=== PATIENT | female | born 1995 | race Caucasian/White ===

== ENCOUNTER 2021-05-18 11:00 | Emergency (ER) | payer SELFPAY ==
[2021-05-18 11:14] VITALS: BP 107/62; PULSE 103; RESP 18; TEMP 37.8; O2SAT 100
--- NOTE | 2021-05-18 11:16 | ED.URI ---
HPI - URI/Sore Throat General Chief Complaint: Upper Respiratory Infection Stated Complaint: Sore Throat,Rash Time Seen by Provider: 05/18/21 11:16 Source: patient and RN notes reviewed Mode of arrival: ambulatory Limitations: no limitations History of Present Illness HPI Narrative: 25-year-old female presents with concern for sore throat, rhinorrhea, nasal congestion, cough, intermittent fever, rash. Reports she has been taking Advil. She denies shortness of breath, body aches, chills. Denies known sick contacts. MD elicited complaint: sore throat Related Data Allergies Allergy/AdvReac Type Severity Reaction Status Date / Time No Known Allergies Allergy Verified 05/18/21 11:22 Review of Systems Review of Systems: Narrative: CONSTITUTIONAL: Denies malaise, chills, sweats. Reports fever. EYES: Denies visual changes, redness, or discharge. ENT: Reports rhinorrhea, congestion, sore throat. Denies sinus pain, otalgia CARDIOVASCULAR: Denies chest pain, palpitations, or edema. RESPIRATORY: Reports cough. Denies dyspnea. GASTROINTESTINAL: Denies abdominal pain, nausea, vomiting, diarrhea SKIN: Denies rash or itching. MUSCULOSKELETAL: Denies myalgia. NEUROLOGIC: Denies headache. All systems reviewed & are unremarkable except as noted in HPI and below PMFSH Comments At time of signature, agree with nursing past medical, surgical, social and family history. There is no relevant family history pertinent to the presenting complaint Exam Narrative: Exam Narrative: GENERAL: Well-appearing, well-nourished, and in no acute distress. HEAD: Normocephalic EYES: PERRLA, conjunctivae clear ENT: Nares clear, turbinates erythematous, clear discharge. Mucous membranes moist. TM pearly knowles with dull light reflex bilaterally; no tragal tenderness. Oropharynx erythematous without lesions. Tonsils enlarged and without exudate, no drooling, no hoarseness, no trismus, uvula midline. NECK: Supple. No lymphadenopathy CHEST: Clear to auscultation, breath sounds equal. No wheezing, rhonchi, rales, or stridor. No respiratory distress, speaks in full sentences. HEART: Regular rate and rhythm. No murmur heard. SKIN: Warm, dry, no rash. NEURO: Alert and oriented x3. PSYCH: Normal mood and affect Course Course Emergency Course: Patient is aware of diagnosis, understands and agrees to treatment plan. Anticipatory guidance given. Patient agrees to follow-up as directed and is aware of reasons to seek care at the emergency department. Portions of this record may have been created with voice recognition software Vital Signs Vital signs: Vital Signs Temperature 100.0 F H 05/18/21 11:14 Pulse Rate 103 H 05/18/21 11:14 Respiratory Rate 18 05/18/21 11:14 Blood Pressure 107/62 05/18/21 11:14 Pulse Oximetry 100 05/18/21 11:14 Temperature 100.0 F H 05/18/21 11:14 Pulse Rate 103 H 05/18/21 11:14 Respiratory Rate 18 05/18/21 11:14 Blood Pressure 107/62 05/18/21 11:14 Pulse Oximetry 100 05/18/21 11:14 Reviewed. MDM - URI/Sore Throat MDM Narrative Medical decision making narrative: Differential diagnosis considered: [place] virus, strep pharyngitis, allergic rhinitis, upper respiratory tract infection, sinusitis, rhinosinusitis, nasopharyngitis. viral pharyngitis, otitis media, otitis externa, pneumonia, bronchitis, viral cough syndrome, viral syndrome, and influenza. Exam findings show no acute concerns or changes; patient is non-toxic appearing and is in no distress. Patient is appropriate for outpatient treatment and follow-up. Lab Data Attestation: I reviewed the patient's lab results. Lab results narrative: Patient refuses Covid test, advised patient about quarantining until symptoms resolve Critical Care Time Critical Care Time Critical Care Time: No Discharge Plan Discharge Clinical Impression: Upper respiratory infection Qualifiers: URI type: unspecified viral URI Qualified Code(s): J06.9 - Acute upper respiratory
[2021-05-18 11:22] VITALS: BP 107/62; PULSE 103; RESP 18; TEMP 37.8; O2SAT 100
== END 2021-05-18 11:50 | disposition home or self-care (01) ==
PROVIDERS: Emergency Provider Nurse Practitioner
DX: J06.9 Acute upper respiratory infection, unspecified (principal)
CPT/HCPCS: 87081; 87880; 99213; G0463

== ENCOUNTER 2021-05-19 12:40 | Emergency (ER) | payer OTHER, SELFPAY ==
[2021-05-19 12:50] VITALS: BP 107/72; PULSE 85; RESP 16; TEMP 36.8; O2SAT 98
--- NOTE | 2021-05-19 12:53 | ED.URI ---
HPI - URI/Sore Throat General Chief Complaint: Upper Respiratory Infection Stated Complaint: SOR THROAT History of Present Illness HPI Narrative: This is a 25 year old female that was here yesterday who refused a COVID Swab today she has come in because she want a COVID test due to she is now having loss of taste and smell continues to have a sore throat and she is not feeling well. Patient boyfriend tested positive for Covid on Monday. Patient has remained afebrile Related Data Allergies Allergy/AdvReac Type Severity Reaction Status Date / Time No Known Allergies Allergy Verified 05/18/21 11:22 Review of Systems Review of Systems: Narrative: CONSTITUTIONAL: Denies fever, chills, or sweats. EYES: Denies visual changes, redness, or discharge. ENT: complains rhinorrhea, congestion, sore throat, or otalgia. loss of taste and semll CARDIOVASCULAR:Denies chest pain, palpitations, or edema. RESPIRATORY: Denies cough or dyspnea. GASTROINTESTINAL: Denies abdominal pain, nausea, vomiting, or diarrhea. GENITOURINARY: Denies dysuria or hematuria. SKIN:[Denies rash or itching. MUSCULOSKELETAL:Denies back pain, joint pain, or myalgia. NEUROLOGIC: Denies headache, numbness, or weakness. PSYCHIATRIC:Denies anxiety or depression PMFSH Comments At time as signature, I have reviewed and agree with nursing past medical, social, surgical and family history. Please see nursing chart for further information. There is no relevant family history pertinent to the presenting complaint. Exam Narrative: Exam Narrative: GENERAL:Well-appearing, well-nourished, and in no acute distress. HEAD:Normocephalic, atraumatic. EYES: PERRLA and EOMI. ENT: Nares clear, modrate clear rhinorrhea or epistaxis. Mucous membranes moist. Pharyngeal erythema loss of taste and smell NECK: Supple. CHEST: Clear to auscultation. No respiratory distress. HEART: Regular rate and rhythm. No murmur heard. Normal peripheral pulses. ABDOMEN: Soft, nontender, nondistended, normal active bowel sounds. EXTREMITIES: Normal range of motion. No edema. SKIN: Warm, dry, no rash. NEURO: No focal deficits. Alert and oriented x3. Course [facility] Physician Supervision Covid-19 test is positive Vital Signs Vital signs: Vital Signs Temperature 98.3 F 05/19/21 12:50 Pulse Rate 85 05/19/21 12:50 Respiratory Rate 16 05/19/21 12:50 Blood Pressure 107/72 05/19/21 12:50 Pulse Oximetry 98 05/19/21 12:50 Temperature 98.3 F 05/19/21 12:50 Pulse Rate 85 05/19/21 12:50 Respiratory Rate 16 05/19/21 12:50 Blood Pressure 107/72 05/19/21 12:50 Pulse Oximetry 98 05/19/21 12:50 MDM - URI/Sore Throat Differential Diagnosis Differential diagnosis: Likely upper respiratory infection, sinusitis, viral infection and pharyngitis Lab Data Labs: Lab Results 05/19/21 Range/Units 13:11 POC SARS CoV-2 Ag Pending Discharge Plan Discharge Clinical Impression: COVID-19 Upper respiratory infection Qualifiers: URI type: unspecified viral URI Qualified Code(s): J06.9 - Acute upper respiratory infection, unspecified Patient Disposition: Home, Self-Care Condition: Stable Instructions: Antibiotic Form, COVID-19 (Coronavirus Disease 2019) (ED), COVID-19: Slow the Coronavirus Spread (ED), Face Coverings (Masks) and COVID-19 (ED) Additional Instructions: Viral illness may last between 7-12days; antibiotic is NOT recommended at this time. Recommend antihistamine such as Benadryl at night time and Claritin/Zyrtec/Karolina during the day Also, recommend symptomatic treatment includes: rest, fluids, and increase humidity of the air at home. Recommend Acetaminophen or nonsteroidal anti-inflammatory agents (NSAIDs) as directed in the bottle to reduce fever and/pain/headache. Avoid smoking/second-hand smoke. Limit visits to areas with large crowds. Please schedule a follow-up visit with your personal physician for further evaluation and treatment wit
== END 2021-05-19 13:20 | disposition home or self-care (01) ==
PROVIDERS: Emergency Provider Nurse Practitioner Family
DX: U07.1 COVID-19 (principal)
CPT/HCPCS: 87426; 99213; C9803; G0463

== ENCOUNTER 2022-01-17 16:39 | Emergency (ER) | payer OTHER, SELFPAY ==
[2022-01-17 16:52] VITALS: BP 129/74; PULSE 93; RESP 12; TEMP 37.4; O2SAT 99
--- NOTE | 2022-01-17 17:02 | ED.SKABFB ---
HPI - Skin/Abscess/Foreign Bdy General Chief complaint: Skin/Abscess/Foreign Body Stated complaint: Rash Time Seen by Provider: 01/17/22 17:05 Source: patient Mode of arrival: ambulatory Limitations: no limitations History of Present Illness HPI narrative: Ms. Watkins is a 26-year-old female patient presenting to the clinic today with complaints of a itchy burning rash to her bilateral arms and legs x1 month. Has been taking Benadryl without relief. She reports that last night it was itching so bad it was unbearable. Denies any changes in environment, soaps, foods, detergents, or has been outside around [employer] [place]. No one in the home has this rash. States that she sleeps in the same bed as her boyfriend and he does not have a rash. She denies seeing any bedbugs nor does she have any rash in between her fingers. Related Data Allergies Allergy/AdvReac Type Severity Reaction Status Date / Time No Known Allergies Allergy Verified 01/17/22 16:55 Review of Systems Review of Systems: Pertinent positives per HPI. Patient denies any fever, chills, rash, headache, visual changes, dizziness, cough, runny nose, sore throat, shortness of breath, chest pain, palpitations, nausea, vomiting, diarrhea, constipation, abdominal pain, or any urinary issues. PMFSH Comments At the time of my signature, I reviewed and agree with the nursing past medical, surgical, social, and family history. There is no relevant family history pertinent to the patient complaint. Exam Narrative: General: Well-developed, well nourished, in no apparent distress Cardio: Regular rate and rhythm, s1 and s2 normal, no murmur appreciated. Resp: Clear to auscultation bilaterally, no rhonchi, rales, wheezing or rubs. Integumentary: [place], warm, and dry, red, raised, itchy skin and inflamed hair follicles to the bilateral forearms, thighs, buttocks, legs, and upper arms that has been scratched and has scabbing, Course Course Emergency Course: Portions of this record may have been created with voice recognition software. Level of Care: Express Care Visit Vital Signs Vital signs: Vital Signs Temperature 37.4 C 01/17/22 16:52 Pulse Rate 93 01/17/22 16:52 Respiratory Rate 12 01/17/22 16:52 Blood Pressure 129/74 01/17/22 16:52 Pulse Oximetry 99 01/17/22 16:52 Temperature 37.4 C 01/17/22 16:52 Pulse Rate 93 01/17/22 16:52 Respiratory Rate 12 01/17/22 16:52 Blood Pressure 129/74 01/17/22 16:52 Pulse Oximetry 99 01/17/22 16:52 Vital signs reviewed MDM - Skin/Abscess/Foreign Bdy MDM Narrative Medical decision making narrative: Upon assessment of patient I suspect a potential folliculitis versus dermatitis. I will give her a prescription for doxycycline to treat the folliculitis as well as some prednisone and triamcinolone cream to treat dermatitis. Patient skin is very excoriated from scratching so I feel the doxycycline will help prevent a secondary infection as well. Differential Diagnosis Differential diagnosis: Likely abscess of skin or subcutaneous tissue, herpes zoster, allergic reaction to drug, cellulitis, eczema, insect bites, impetigo and contact dermatitis Discharge Plan Discharge Clinical Impression: Dermatitis, Folliculitis Patient Disposition: Home, Self-Care Condition: Stable Instructions: Antibiotic Form, Folliculitis (ED), Dermatitis (ED) Additional Instructions: Doxycycline, prednisone, and triamcinolone cream as directed May continue Benadryl as needed for itching Avoid hot showers and scratching. Moisturize skin Follow-up with your PCP in 1 week if symptoms persist or sooner if they worsen Prescriptions: New prednisone 20 mg tablet 40 mg PO DAILY 5 Days Qty: 10 RF: 0 triamcinolone acetonide 0.1 % cream 1 applic topical BID 7 Days Qty: 80 RF: 0 doxycycline monohydrate 100 mg tablet 100 mg PO BID 7 Days Qty: 14 RF: 0 Follow-up/Referrals: PHYSICIAN,FEDERAL APPELLATE CLERK [[facility]
== END 2022-01-17 17:20 | disposition home or self-care (01) ==
PROVIDERS: Emergency Provider Nurse Practitioner Family
DX: L30.9 Dermatitis, unspecified (principal); L73.9 Follicular disorder, unspecified
CPT/HCPCS: 99213; G0463